=== PATIENT | male | born 1990 | race Two or more races ===

== ENCOUNTER 2022-04-06 09:58 | Emergency (ER) | payer MEDICAID ==
[~2022-04-06] VITALS: Ht 167.6 cm; Wt 81.6 kg
--- NOTE | 2022-04-06 11:00 | NUR ---
BIB SISTER C/O VOLUNTARY PSYCH ADMISSION [facility]. PLACED ON BED, CALM- COOPERATIVE.
[2022-04-06 11:02] VITALS: BP 114/76
--- NOTE | 2022-04-06 11:29 | NUR ---
DR SUTTON AT BEDSIDE FOR EVAL.
--- NOTE | 2022-04-06 11:30 | NUR ---
SISTER JEANNE [phone] MOTHER ARY [phone]
--- NOTE | 2022-04-06 11:40 | NUR ---
PRODUCT INSPECTION SUPERVISOR AT BEDSIDE FOR BLOOD DRAW.
[2022-04-06 12:02] LABS: BASOPHILS % (AUTO) 0.5 % (0.0-2.0); EOSINOPHILS % (AUTO) 1.1 % (0.0-6.0); HEMATOCRIT 43 % (39-51); LYMPHOCYTES # (AUTO) 2.6 K/uL (0.8-4.8); LYMPHOCYTES % (AUTO) 37.2 % (20.0-44.0); MEAN CORPUSCULAR HGB CONC 32 g/dl (31.0-36.0); MEAN CORPUSCULAR VOLUME 90 fL (80-96); MONOCYTES # (AUTO) 0.8 K/uL (0.1-1.30); MONOCYTES % (AUTO) 11.7 % (2.0-12.0); NEUTROPHILS # (AUTO) 3.5 K/uL (1.8-8.9); NEUTROPHILS % (AUTO) 49.5 % (43.0-81.0); PLATELET COUNT (AUTO) 243 K/uL (150-450); RED BLOOD CELL COUNT(AUTO) 4.84 MIL/uL (4.5-6.0)
[2022-04-06 12:18] LABS: CALCIUM, SERUM 9.1 mg/dL (8.5-10.1); CARBON DIOXIDE 27 mmol/L (21-32); CHLORIDE 102 mmol/L (98-107); CREATININE 0.9 mg/dL (0.6-1.3); GLUCOSE 94 mg/dL (74-106); POTASSIUM 4.3 mmol/L (3.5-5.1); SODIUM SERUM 137 mmol/L (136-145); UREA NITROGEN, BLOOD 15 mg/dL (7-18)
[2022-04-06 12:28] LABS: ALANINE AMINOTRANSFERASE 36 U/L (12-78); ALBUMIN 3.8 g/dL (3.4-5.0); ALCOHOL, BLOOD < 3 mg/dL (0-0); ALKALINE PHOSPHATASE 63 U/L (46-116); ASPARTATE AMINOTRANSFERASE 17 U/L (15-37); BILIRUBIN,DIRECT 0.2 mg/dL (0.0-0.2); BILIRUBIN,TOTAL 0.8 mg/dL (0.2-1.0); TOTAL PROTEIN, SERUM 7.6 g/dL (6.4-8.2)
[2022-04-06 12:30] LABS: ACETAMINOPHEN 0 ug/ml (10-30)
[2022-04-06 14:11] LABS: BILIRUBIN,URINE NEGATIVE (NEGATIVE); COLOR,URINE YELLOW (YELLOW); LEUKOCYTE ESTERASE ,URINE NEGATIVE (NEGATIVE); NITRITE, URINE NEGATIVE (NEGATIVE); PROTEIN,URINE NEGATIVE (NEGATIVE); UGLUCOSE NEGATIVE (NEGATIVE); UROBILINOGEN,URINE 0.2 EU/dL (0.2)
--- NOTE | 2022-04-06 15:36 | NUR ---
CLINICALS FAXED TO [facility]
--- NOTE | 2022-04-06 15:38 | NUR ---
CALLED [facility], PT IS PENDING REVIEW PER MAGGIE
--- NOTE | 2022-04-06 16:40 | NUR ---
PT ACCEPTED AT [facility] UNDER THE CARE OF DR. BUCKNER GIVE REPORT TO [facility] ETA [phone]
--- NOTE | 2022-04-06 17:10 | NUR ---
[employer] JOURNAL BY ANA PAULA MENDOZA. CONDITION STABLE.
== END 2022-04-06 17:12 ==
LOC: ER 09:58
DX: R45.851 Suicidal ideations (principal); F15.90 Other stimulant use, unspecified, uncomplicated; F31.9 Bipolar disorder, unspecified; F20.9 Schizophrenia, unspecified; F17.210 Nicotine dependence, cigarettes, uncomplicated
CPT/HCPCS: 99284; 85025; 80048; 80076; 81003; 36415; 87426; 80143; 80320; 80307; C9803; G0480